=== PATIENT | male | born 1940 | race Caucasian/White ===

== ENCOUNTER 2018-08-11 13:47 | Inpatient (IN) | payer OTHER ==
[~2018-08-11] VITALS: Ht 185.4 cm; Wt 108.2 kg
[~2018-08-11 13:47] MED LIST: ALPR1TAB2 PO; TRAZ5POW
[2018-08-11] MEDS ORDERED: IV NS 0.9% 1,000 ML BAG IV ONE ×2 (14:30→16:00)
[2018-08-11] MEDS ORDERED: ONDANSETRON HCL/PF 4 MG/2 ML VIAL IVP ONE (14:30)
[2018-08-11] MEDS ORDERED: MORPHINE SULFATE INJ 2 MG/ML DISP.SYRIN IV ONE ×2 (14:30→16:30)
[2018-08-11] MEDS ORDERED: ACETAMINOPHEN ES 500 MG TABLET PO ONE (14:30)
[2018-08-11 14:38] LABS: BASOPHILS % (AUTO) 0.1 % (0.0-2.0); HEMATOCRIT 35 % (39-51); HEMOGLOBIN 11.6 g/dL (13.5-17.5); LYMPHOCYTES # (AUTO) 0.7 /CMM (0.8-4.8); MEAN CORPUSCULAR HGB CONC 34 g/dl (31.0-36.0); MEAN CORPUSCULAR VOLUME 93 fL (80-96); MONOCYTES # (AUTO) 1.7 /CMM (0.1-1.30); MONOCYTES % (AUTO) 12.1 % (2.0-12.0); NEUTROPHILS # (AUTO) 11.7 /CMM (1.8-8.9); NEUTROPHILS % (AUTO) 82.8 % (43.0-81.0); PLATELET COUNT (AUTO) 246 /CMM (150-450); RDW COEFFICIENT OF VARIATION 12.7 (11.5-15.0); RED BLOOD CELL COUNT(AUTO) 3.71 MIL/uL (4.5-6.0); WHITE BLOOD COUNT (AUTO) 14.1 K/uL (4.3-11.0)
[2018-08-11 14:48] LABS: CALCIUM, SERUM 8.5 mg/dL (8.5-10.1); CARBON DIOXIDE 26 mmol/L (21-32); CHLORIDE 96 mmol/L (98-107); GLUCOSE 133 mg/dL (74-106); POTASSIUM 3.8 mmol/L (3.5-5.1); SODIUM SERUM 133 mmol/L (136-145); UREA NITROGEN, BLOOD 15 mg/dL (7-18)
[2018-08-11] MEDS ORDERED: ONDANSETRON HCL/PF 4 MG/2 ML VIAL ONE (14:49)
[2018-08-11] MEDS ORDERED: MORPHINE SULFATE INJ 4 MG/ML DISP.SYRIN ONE ×2 (14:50→16:21)
[2018-08-11] MEDS ORDERED: ACETAMINOPHEN ES 500 MG TABLET ONE (14:50)
[2018-08-11 14:53] LABS: ALANINE AMINOTRANSFERASE 18 U/L (12-78); ALBUMIN 3.3 g/dL (3.4-5.0); ALKALINE PHOSPHATASE 69 U/L (46-116); ASPARTATE AMINOTRANSFERASE 17 U/L (15-37); BILIRUBIN,DIRECT 0.4 mg/dL (0.0-0.2); BILIRUBIN,TOTAL 1.2 mg/dL (0.2-1.0); LIPASE 51 U/L (73-393); TOTAL PROTEIN, SERUM 6.9 g/dL (6.4-8.2)
[2018-08-11] MEDS ORDERED: PIPERACILLIN /TAZOBACTAM 3.375 G in IV D5W 50 ML IV ONE (15:30)
[2018-08-11] MEDS ORDERED: TRAZ-182 PO (15:48)
[2018-08-11] MEDS ORDERED: IBUP-1957 PO (15:48)
[2018-08-11] MEDS ORDERED: DOXA4TAB3 PO (15:48)
[2018-08-11] MEDS ORDERED: ATEN25TA PO (15:48)
[2018-08-11] MEDS ORDERED: ALPRAZOLAM 1 MG TABLET PO PRN (16:30)
[2018-08-11] MEDS ORDERED: MAG HYDROX/AL HYDROX/SIMETH 30 ML UDC PO PRN (16:30)
[2018-08-11] MEDS ORDERED: Z GUARD REMEDY 2 OZ OINT TP PRN (16:30)
[2018-08-11] MEDS ORDERED: ACETAMINOPHEN 325 MG TABLET PO PRN (16:30)
[2018-08-11] MEDS ORDERED: MAGNESIUM HYDROXIDE 30 ML UDC PO PRN (16:30)
[2018-08-11] MEDS ORDERED: HYDROCODONE/APAP 5/325MG 1 EACH TABLET PO PRN (16:30)
[2018-08-11] MEDS ORDERED: ONDANSETRON HCL/PF 4 MG/2 ML VIAL IVP PRN (16:30)
[2018-08-11] MEDS ORDERED: BUPIVACAINE 0.5 % PF 150 MG/30 ML VIAL ONE (17:29)
[2018-08-11] MEDS ORDERED: ANESTHESIA TRAY IN PYXIS 1 EA TRAY MC ONE (17:29)
[2018-08-11] MEDS ORDERED: FENTANYL PF 250MCG/5ML AMPUL ONE (17:51)
[2018-08-11] MEDS ORDERED: MIDAZOLAM HCL 2 MG/2ML VIAL ONE (17:51)
[2018-08-11] MEDS ORDERED: METOCLOPRAMIDE HCL 10 MG/2 ML VIAL ONE (17:52)
[2018-08-11] MEDS ORDERED: ROCURONIUM BROMIDE 50 MG/5 ML ONE (17:52)
[2018-08-11] MEDS ORDERED: PIPERACILLIN /TAZOBACTAM 3.375 G in IV D5W 50 ML IV SCH (18:00)
[2018-08-11] MEDS ORDERED: MEPERIDINE HCL/PF 100 MG/ML DISP.SYRIN ONE (20:01)
[2018-08-11] MEDS ORDERED: FENTANYL PF 100MCG/2ML AMPUL ONE (20:17)
[2018-08-11 21:00] VITALS: BP 138/62
[2018-08-11] MEDS: IV NS 0.9% 1,000 ML IV PRN (21:58)
[2018-08-11] MEDS: TRAZODONE 50 MG TABLET PO SCH (22:00)
[2018-08-11] MEDS: MORPHINE SULFATE INJ 2 MG/ML DISP.SYRIN IV PRN (23:05)
[2018-08-12] VITALS: BP 151/70
[2018-08-12] MEDS: PIPERACILLIN /TAZOBACTAM 3.375 G in IV D5W 50 ML IV SCH ×4 (00:33→17:42)
[2018-08-12 04:00] VITALS: BP 177/80
[2018-08-12] MEDS: MORPHINE SULFATE INJ 2 MG/ML DISP.SYRIN IV PRN ×2 (04:58→07:04)
[2018-08-12] MEDS: IV NS 0.9% 1,000 ML IV PRN ×2 (06:08→18:38)
[2018-08-12 06:46] LABS: HEMATOCRIT 36 % (39-51); HEMOGLOBIN 11.8 g/dL (13.5-17.5); LYMPHOCYTES # (AUTO) 0.6 /CMM (0.8-4.8); LYMPHOCYTES % (AUTO) 5.2 % (20.0-44.0); MEAN CORPUSCULAR HGB CONC 33 g/dl (31.0-36.0); MEAN CORPUSCULAR VOLUME 94 fL (80-96); NEUTROPHILS # (AUTO) 9.7 /CMM (1.8-8.9); NEUTROPHILS % (AUTO) 85.8 % (43.0-81.0); PLATELET COUNT (AUTO) 240 /CMM (150-450); RDW COEFFICIENT OF VARIATION 12.5 (11.5-15.0); RED BLOOD CELL COUNT(AUTO) 3.81 MIL/uL (4.5-6.0); WHITE BLOOD COUNT (AUTO) 11.3 K/uL (4.3-11.0)
[2018-08-12 06:54] LABS: CARBON DIOXIDE 25 mmol/L (21-32); CHLORIDE 101 mmol/L (98-107); CREATININE 0.9 mg/dL (0.6-1.3); GLUCOSE 162 mg/dL (74-106); MAGNESIUM 1.5 mg/dL (1.8-2.4); PHOSPHORUS 2.1 mg/dL (2.5-4.9); POTASSIUM 3.6 mmol/L (3.5-5.1); SODIUM SERUM 136 mmol/L (136-145); UREA NITROGEN, BLOOD 11 mg/dL (7-18)
[2018-08-12 07:00] LABS: CHOLESTEROL 109 mg/dL (<200); HDL CHOLESTEROL 21 mg/dL (40-60); LDL 79 mg/dL (0-99); TRIGLYCERIDES 93 mg/dL (30-150)
[2018-08-12 08:00] VITALS: BP 163/80
[2018-08-12] MEDS: DOXAZOSIN MESYLATE (4 MG) 4 MG TABLET PO SCH (09:00)
[2018-08-12] MEDS: ATENOLOL 25 MG TABLET PO SCH (09:00)
[2018-08-12] MEDS: PANTOPRAZOLE 40 MG VIAL IV SCH (09:21)
[2018-08-12] MEDS: HYDROMORPHONE 1 MG/1 ML DISP.SYRIN IV PRN ×4 (10:01→22:29)
[2018-08-12] MEDS: Magnesium 1GM/D5W 100ML PREMIX 100 ML IV SCH ×2 (10:33→11:19)
[2018-08-12] MEDS ORDERED: IOHEXOL-300 100 ML VIAL IV ONE (10:54)
[2018-08-12] MEDS ORDERED: CT SWABBABLE VALVE TRANS SET 1 EA INFUS.SET MC ONE (10:55)
[2018-08-12] MEDS ORDERED: IV NS 0.9% 250 ML IV ONE (10:55)
[2018-08-12] MEDS ORDERED: NEUTRA PHOS 1 POWD.PACKET PO ONE (12:00)
[2018-08-12] MEDS ORDERED: Magnesium 1GM/D5W 100ML PREMIX 100 ML IV SCH (12:00)
[2018-08-12] MEDS ORDERED: HYDROCODONE/APAP 10/325MG 1 EA TABLET PO PRN (13:30)
[2018-08-12 16:00] VITALS: BP 159/74
[2018-08-12 20:00] VITALS: BP 156/65
[2018-08-12 20:25] VITALS: BP 156/65
[2018-08-12] MEDS: TRAZODONE 50 MG TABLET PO SCH (22:00)
[2018-08-13] MEDS: PIPERACILLIN /TAZOBACTAM 3.375 G in IV D5W 50 ML IV SCH ×4 (00:02→17:44)
[2018-08-13] MEDS: HYDROMORPHONE 1 MG/1 ML DISP.SYRIN IV PRN ×6 (02:00→19:51)
[2018-08-13] MEDS: IV NS 0.9% 1,000 ML IV PRN ×2 (05:38→21:08)
[2018-08-13 06:09] LABS: BASOPHILS % (AUTO) 0.1 % (0.0-2.0); EOSINOPHILS % (AUTO) 0.2 % (0.0-6.0); HEMATOCRIT 37 % (39-51); HEMOGLOBIN 12.1 g/dL (13.5-17.5); LYMPHOCYTES # (AUTO) 0.9 /CMM (0.8-4.8); LYMPHOCYTES % (AUTO) 6.6 % (20.0-44.0); MEAN CORPUSCULAR HGB CONC 33 g/dl (31.0-36.0); MEAN CORPUSCULAR VOLUME 95 fL (80-96); MONOCYTES # (AUTO) 1.4 /CMM (0.1-1.30); MONOCYTES % (AUTO) 9.9 % (2.0-12.0); NEUTROPHILS # (AUTO) 11.6 /CMM (1.8-8.9); NEUTROPHILS % (AUTO) 83.2 % (43.0-81.0); PLATELET COUNT (AUTO) 282 /CMM (150-450); RDW COEFFICIENT OF VARIATION 12.9 (11.5-15.0); RED BLOOD CELL COUNT(AUTO) 3.85 MIL/uL (4.5-6.0); WHITE BLOOD COUNT (AUTO) 13.9 K/uL (4.3-11.0)
[2018-08-13 06:17] LABS: ALBUMIN 2.2 g/dL (3.4-5.0); BILIRUBIN,DIRECT 2.3 mg/dL (0.0-0.2); BILIRUBIN,TOTAL 3.2 mg/dL (0.2-1.0); TOTAL PROTEIN, SERUM 5.8 g/dL (6.4-8.2)
[2018-08-13 06:20] LABS: CALCIUM, SERUM 8.1 mg/dL (8.5-10.1); CARBON DIOXIDE 27 mmol/L (21-32); CHLORIDE 103 mmol/L (98-107); CREATININE 1.1 mg/dL (0.6-1.3); GLUCOSE 143 mg/dL (74-106); MAGNESIUM 2.3 mg/dL (1.8-2.4); POTASSIUM 4.2 mmol/L (3.5-5.1); SODIUM SERUM 138 mmol/L (136-145); UREA NITROGEN, BLOOD 14 mg/dL (7-18)
[2018-08-13 08:00] VITALS: BP 145/77
[2018-08-13] MEDS: PANTOPRAZOLE 40 MG VIAL IV SCH (08:04)
[2018-08-13] MEDS: DOXAZOSIN MESYLATE (4 MG) 4 MG TABLET PO SCH (08:34)
[2018-08-13] MEDS: ATENOLOL 25 MG TABLET PO SCH (08:35)
[2018-08-13 16:00] VITALS: BP 129/71
[2018-08-13 16:20] LABS: BILIRUBIN,DIRECT 2.2 mg/dL (0.0-0.2); BILIRUBIN,TOTAL 3.1 mg/dL (0.2-1.0)
[2018-08-13 19:36] VITALS: BP 154/68
[2018-08-13] MEDS: TRAZODONE 50 MG TABLET PO SCH (22:00)
[2018-08-14] MEDS: PIPERACILLIN /TAZOBACTAM 3.375 G in IV D5W 50 ML IV SCH ×4 (00:20→17:19)
[2018-08-14] MEDS: HYDROMORPHONE 1 MG/1 ML DISP.SYRIN IV PRN ×6 (00:38→17:19)
[2018-08-14 06:47] LABS: BASOPHILS % (AUTO) 0.1 % (0.0-2.0); EOSINOPHILS % (AUTO) 1.8 % (0.0-6.0); HEMATOCRIT 35 % (39-51); HEMOGLOBIN 11.8 g/dL (13.5-17.5); LYMPHOCYTES % (AUTO) 8.5 % (20.0-44.0); MEAN CORPUSCULAR HGB CONC 33 g/dl (31.0-36.0); MEAN CORPUSCULAR VOLUME 95 fL (80-96); MONOCYTES % (AUTO) 8.2 % (2.0-12.0); NEUTROPHILS # (AUTO) 9.6 /CMM (1.8-8.9); NEUTROPHILS % (AUTO) 81.4 % (43.0-81.0); PLATELET COUNT (AUTO) 328 /CMM (150-450); RDW COEFFICIENT OF VARIATION 12.9 (11.5-15.0); RED BLOOD CELL COUNT(AUTO) 3.73 MIL/uL (4.5-6.0); WHITE BLOOD COUNT (AUTO) 11.8 K/uL (4.3-11.0)
[2018-08-14 07:09] LABS: ALANINE AMINOTRANSFERASE 16 U/L (12-78); ALBUMIN 2.1 g/dL (3.4-5.0); ALKALINE PHOSPHATASE 53 U/L (46-116); ASPARTATE AMINOTRANSFERASE 16 U/L (15-37); BILIRUBIN,DIRECT 1.3 mg/dL (0.0-0.2); BILIRUBIN,TOTAL 1.9 mg/dL (0.2-1.0); CARBON DIOXIDE 28 mmol/L (21-32); CHLORIDE 103 mmol/L (98-107); GLUCOSE 119 mg/dL (74-106); POTASSIUM 3.7 mmol/L (3.5-5.1); SODIUM SERUM 138 mmol/L (136-145); TOTAL PROTEIN, SERUM 5.8 g/dL (6.4-8.2); UREA NITROGEN, BLOOD 19 mg/dL (7-18)
[2018-08-14 08:00] VITALS: BP 151/73
[2018-08-14] MEDS: PANTOPRAZOLE 40 MG VIAL IV SCH (08:49)
[2018-08-14] MEDS: DOXAZOSIN MESYLATE (4 MG) 4 MG TABLET PO SCH (08:55)
[2018-08-14] MEDS: ATENOLOL 25 MG TABLET PO SCH (08:55)
[2018-08-14] MEDS: IV NS 0.9% 1,000 ML IV PRN (12:01)
[2018-08-14] MEDS ORDERED: PIPE3.379 IV (13:36)
[2018-08-14] MEDS ORDERED: Hydrocodone/Apap 10/325MG PO (13:36)
[2018-08-14] MEDS ORDERED: PANT40VI IV (13:36)
[2018-08-14] MEDS ORDERED: HYDR1DIS2 IV (13:36)
[2018-08-14 16:00] VITALS: BP 177/79
== END 2018-08-14 18:30 | disposition short-term general hospital (02) | DRG 853 ==
LOC: ER 13:49 → MED 16:33 → TELE 08-12 03:30 → MED 08-12 09:46
PROVIDERS: ADMIT Nurse Practitioner Acute Care; ATTEND Nurse Practitioner Acute Care
PROC: 0WQF4ZZ Repair Abdominal Wall, Percutaneous Endoscopic Approach (ICD-10-PCS; 2018-08-11)
PROC: 0DQH4ZZ Repair Cecum, Percutaneous Endoscopic Approach (ICD-10-PCS; 2018-08-11)
PROC: 0D9J30Z Drainage of Appendix with Drainage Device, Percutaneous Approach (ICD-10-PCS; 2018-08-11)
PROC: 0DTJ4ZZ Resection of Appendix, Percutaneous Endoscopic Approach (ICD-10-PCS; principal; 2018-08-11 17:30)
DX: A41.9 Sepsis, unspecified organism (principal); K35.32 Acute appendicitis with perforation, localized peritonitis, and gangrene, without abscess; E43 Unspecified severe protein-calorie malnutrition; E87.1 Hypo-osmolality and hyponatremia; K86.2 Cyst of pancreas; K56.7 Ileus, unspecified; F41.9 Anxiety disorder, unspecified; Z68.31 Body mass index [BMI] 31.0-31.9, adult; E80.6 Other disorders of bilirubin metabolism; D64.9 Anemia, unspecified; I10 Essential (primary) hypertension; N40.0 Benign prostatic hyperplasia without lower urinary tract symptoms; M81.0 Age-related osteoporosis without current pathological fracture; K43.9 Ventral hernia without obstruction or gangrene; K38.1 Appendicular concretions; G89.29 Other chronic pain; F17.210 Nicotine dependence, cigarettes, uncomplicated; K76.0 Fatty (change of) liver, not elsewhere classified; K86.9 Disease of pancreas, unspecified; M19.90 Unspecified osteoarthritis, unspecified site; N28.1 Cyst of kidney, acquired; N20.0 Calculus of kidney; Z80.0 Family history of malignant neoplasm of digestive organs; E86.1 Hypovolemia; Z87.442 Personal history of urinary calculi
CPT/HCPCS: 36415; 71045-TC; 74018; 74178; 74181-TC; 76705-TC; 80048-TC; 80061-TC; 80076-TC; 82247-TC; 82248-TC; 83605-TC; 83690-TC; 83735-TC; 84100-TC; 84443-TC; 85025-TC; 86301; 87040-TC; 87070-TC; 87081-TC; 88304-TC; A4606; C9113; J1170; J2175; J2250; J2270; J2405; J2543; J2704; J2710; J2765; J3010; J3475; J3490; J7030; J7050; J7060; Q9967; Z7610

== ENCOUNTER 2022-11-18 08:08 | Emergency (ER) | payer OTHER ==
[~2022-11-18] VITALS: Ht 185.4 cm; Wt 104.3 kg
[~2022-11-18 08:08] MED LIST changes: +ATEN25TA PO; +DOXA4TAB3 PO; +HYDR1DIS2 IV; +Hydrocodone/Apap 10/325MG PO; +IBUP-1957 PO; +PANT40VI IV; +PIPE3.379 IV; +TRAZ-182 PO; -TRAZ5POW
--- NOTE | 2022-11-18 08:15 | NUR ---
BIB RA 839 IN A SITTING POSITION,C/O ANXIETY AND SHAKING,HEAVY ALCOHOL DRINKER AND LAST DRINK WAS AT 0300
--- NOTE | 2022-11-18 08:17 | NUR ---
ESTABLISHED IV LINE LEFT AC 20 G
[2022-11-18 08:36] LABS: BASOPHILS % (AUTO) 0.2 % (0.0-2.0); EOSINOPHILS % (AUTO) 0.6 % (0.0-6.0); HEMATOCRIT 41 % (39-51); HEMOGLOBIN 14.1 g/dL (13.5-17.5); LYMPHOCYTES # (AUTO) 0.7 K/uL (0.8-4.8); MEAN CORPUSCULAR HGB CONC 34 g/dl (31.0-36.0); MEAN CORPUSCULAR VOLUME 98 fL (80-96); MONOCYTES # (AUTO) 0.7 K/uL (0.1-1.30); MONOCYTES % (AUTO) 10.1 % (2.0-12.0); NEUTROPHILS # (AUTO) 5.1 K/uL (1.8-8.9); NEUTROPHILS % (AUTO) 78.1 % (43.0-81.0); PLATELET COUNT (AUTO) 207 K/uL (150-450); RED BLOOD CELL COUNT(AUTO) 4.23 MIL/uL (4.5-6.0); WHITE BLOOD COUNT (AUTO) 6.5 K/uL (4.3-11.0)
[2022-11-18] MEDS ORDERED: LORAZEPAM INJ 2 MG/ML VIAL ONE (08:52)
[2022-11-18] MEDS ORDERED: LORAZEPAM INJ 2 MG/ML VIAL IV ONE (09:00)
[2022-11-18 09:16] LABS: CALCIUM, SERUM 9.5 mg/dL (8.5-10.1); CARBON DIOXIDE 22 mmol/L (21-32); CHLORIDE 100 mmol/L (98-107); CREATININE 1.3 mg/dL (0.6-1.3); GLUCOSE 178 mg/dL (74-106); POTASSIUM 3.2 mmol/L (3.5-5.1); SODIUM SERUM 137 mmol/L (136-145); UREA NITROGEN, BLOOD 10 mg/dL (7-18)
[2022-11-18] MEDS ORDERED: POTASSIUM CHLORIDE 20 MEQ TAB.PRT.SR PO ONE ×2 (09:30→09:36)
[2022-11-18] MEDS ORDERED: Magnesium 1GM/D5W 100ML PREMIX 100 ML IV SCH (09:30)
[2022-11-18 09:31] LABS: ALANINE AMINOTRANSFERASE 68 U/L (12-78); ALBUMIN 4.5 g/dL (3.4-5.0); ALCOHOL, BLOOD < 3 mg/dL (0-0); ALKALINE PHOSPHATASE 45 U/L (46-116); ASPARTATE AMINOTRANSFERASE 49 U/L (15-37); BILIRUBIN,DIRECT 0.3 mg/dL (0.0-0.2); BILIRUBIN,TOTAL 0.9 mg/dL (0.2-1.0); TOTAL PROTEIN, SERUM 7.7 g/dL (6.4-8.2)
[2022-11-18] MEDS ORDERED: Magnesium 1GM/D5W 100ML PREMIX 100 ML IV ONE (09:36)
[2022-11-18] MEDS ORDERED: LORAZEPAM 1 MG TABLET PO ONE ×2 (10:30→12:00)
[2022-11-18] MEDS ORDERED: LORAZEPAM 1 MG TABLET ONE ×2 (10:45→12:26)
--- NOTE | 2022-11-18 11:30 | NUR ---
COVID SWAB TAKEN
--- NOTE | 2022-11-18 11:30 | NUR ---
CALLED BECKY RICO
[2022-11-18] MEDS ORDERED: IV NS 0.9% 1,000 ML BAG IV ONE (12:00)
--- NOTE | 2022-11-18 12:25 | NUR ---
SS Consult: SS Consult requested for alcohol rehab referrals. The pt. is a 82 -year-old male pt. who came into ED due to alcohol withdrawals per EMR. Upon SS consult, the pt. is Alert & Oriented x 4 and makes good eye contact. The pt. appears well-groomed, flushed appearance and with slight tremors. Pt. has depressed mood & affect. Pt.s speech is loud & clear and thought process is WNL. Pt. is hard of hearing. Pt. remained calm & cooperative throughout interview. Pt. denies SI/HI and states denies hallucinations. SW explored pt.s living situation. Per pt. he resides with his son, Javon Villalobos in his home [[id number] [facility] [address] SW explored pt.s drug & ETOH use. Pt. states he has been drinking Luci or Vodka daily for the past week on a binge. SW offered pt. referral to rehab facility and pt. accepted resources. SW provided psychoeducation on alcohol dependence. Per pt. denied any mental health diagnosis. The pt. stated he is usually ambulatory and independent with his ADLs. Pt. states his support system also consists of his daughter, Antonio [phone]. Plan: BRAD provided pt. with the following addiction resources and pt. accepted them. BRAD discussed with Afshin AVALOS who stated that pt. has [facility], but they will work on admitting pt. here or transfer to [facility] to manage withdrawals. Pt. states he can return home [[address] [facility] [address]] when he is medically cleared. Noted ADDICTION RESOURCES For Drugs and Alcohol [facility] sober living Referrals For Rehabilitation once sober Address:[address] [place] [address] [facility] [address] [place] [address] Detox/residential [facility] Substance Abuse Helpline ([facility]) Outpatient, residential treatment, recovery support for youth/adults [facility] www.actionfamilycounsInvertirOnline.com.Goshi [facility] Teen programs for drug/alcohol education and support Richard Victoria [place]. Program for adults, sliding scale provides support and education [facility] www.[employer].org [place]; Detox/residential treatment programs; transition to sober living [facility] www.cri-help.org [place]; Outpatient and residential treatment programs; transition to sober living [facility] TEL: [phone] I-[facility] [place] [facility] Moi Michele; Outpatient education and supportive programs for teens and adults [facility] www.[facility].org [place]; Residential treatment and work program for females only [place] www.Blue[employer] Softwareje[facility].BOLETUS NETWORK [place]: Outpatient/residential treatment program for teens and young adults [facility] www.[facility].org [place] Detox, inpatient, outpatient for adults and youth [facility], [facility]. [place]; Outpatient programs and referrals to community residential programs. Alcoholics Anonymous -SFV information and meeting and scheduleswww.aa-intergroup.org Wn-Xnnr-Ugvjoqj https://al-anon.org/ [place] support groups for family of alcoholics. Marijuana Anonymous www.madistrict6.org -SFV listing of meetings Narcotics Anonymous www.na.org SOBER LIVING RESOURCES [facility] www.soberhousing.net A non-profit agency that provides resources to recovery and sober living homes throughout [place] Human Resource SSD Sober Living Homes: A Work in ProgressAldair [facility] ValleyDonUS [employer]CH[employer] [facility], [facility] SobriJohn C. Stennis Memorial HospitalMoi Womens Sober Living Homes: [facility] x [phone] My New BeginningANDRE Odyssey HouseShriners Hospital Shorehamkris Victoria [place] Coed Sober Living Homes: [facility] Counseling--Outpatient [facility] [address] [facility] [place] [address] [place] [address] (Specializes in in-depth psychotherapy for emotional distress: anxiety, depression, interpersonal conflicts, life transitions, childhood abuse) [facility] [address] [place] [address] (Assist with solving problem marital difficulties, separation & divorce, aging parents, & grief, chronic & terminal illness) [facility] [address] [place] [address] (Deal with loss & grief, anxiety, marital difficulties) Homebound/Mental Health Services [address] [place], [place] [id number] (Provide in-home mental services to people who are incapable of leaving their homes) [facility] of the Elderly Senior Service/Resource Center [address] [place] [address] [facility] [address] [place] [address] Mental Health Services LeighannJ.W. Ruby Memorial HospitalRosetta Spurger [address] [place] [address] Services: Outpatient therapy for children, teens, young adults, adults, older adults, and families; Psychiatric services, medication support Psychiatric Outpatient Services [facility] Partial Hospitalization and Intensive Outpatient Program (Managed Care and [facility] Only)[address] [facility] [phone] [facility] Partial Hospitalization and Outpatient [id number] Natanael [facility]. [address] [place], [place] [phone] [facility] [address] [place], [place] [phone] [facility] Moi Michele Partial Hospitalization and Outpatient [id number] [place] [phone] Crisis and Hotline Telephone Numbers 24-Hour service unless stated [place] Crisis Hotlines: [facility] Mental Health/Crisis Line........175.736.6483 Suicide Prevention Center (24 Hours).......743.364.4693 Suicide Prevention Crisis Center.......[phone] (24 Hours) Assaults Against Women Hotline.........910.380.3633 (24 Hours -- [facility]) Women and Children Crisis Assisted...........[phone] (24 Hours) Child Abuse Hotline............203.324.4085 [facility] Rape Treatment Center (24 Hours)..........[phone] Alcoholics Anonymous (24 Hours)..........419.157.1022 Cocaine Anonymous (24 Hours)............[phone] Narcotics Anonymous (24 Hours)..........281.170.2264 Zuleyma Gomes [facility] [address], [place] [address]
--- NOTE | 2022-11-18 12:28 | NUR ---
TRANSFER INFO: [facility] ACCEPTING: DR KAMERON PAZ # FOR REPORT: [phone] [facility] TRANSPORT: [facility] @ 1415
--- NOTE | 2022-11-18 12:34 | NUR ---
CALLED FOR REPORT, NURSE STATES "IT'S GOING TO TAKE TIME" WILL CALL BACK IN 15-20MIN
--- NOTE | 2022-11-18 12:58 | NUR ---
CALLED FOR REPORT, NURSE STATES "IT'S GOING TO TAKE TIME" WILL CALL BACK IN 15-20MIN
[2022-11-18 13:01] VITALS: BP 138/70
--- NOTE | 2022-11-18 13:10 | NUR ---
GAVE REPORT TO TRANSPORT PERSON .
--- NOTE | 2022-11-18 13:15 | NUR ---
REPORT GIVEN TO JEFF SANCHEZ OF [facility]
[2022-11-18] MEDS ORDERED: ACETAMINOPHEN 325 MG TABLET ONE (13:18)
--- NOTE | 2022-11-18 13:29 | NUR ---
PATIENT WAS PICKED UP BY [facility] PER [facility] [employer]
[2022-11-18] MEDS ORDERED: ACETAMINOPHEN 325 MG TABLET PO ONE (13:30)
== END 2022-11-18 13:34 | disposition short-term general hospital (02) ==
LOC: ER 08:08
DX: F10.239 Alcohol dependence with withdrawal, unspecified (principal); E83.42 Hypomagnesemia; F41.9 Anxiety disorder, unspecified; E87.6 Hypokalemia; Z20.822 Contact with and (suspected) exposure to COVID-19; R73.03 Prediabetes; I10 Essential (primary) hypertension; Z87.442 Personal history of urinary calculi; Z79.899 Other long term (current) drug therapy
CPT/HCPCS: 99291; 96365; 96361; 96375; 93005; 71045; 70450; 85025; 80048; 80076; 83735; 36415; 85730; 87426; 80320; J2060; J7040; J3475; C9803; G0480

== ENCOUNTER 2024-02-02 11:52 | Emergency (ER) | payer OTHER ==
[~2024-02-02] VITALS: Ht 185.4 cm; Wt 104.3 kg
[2024-02-02 12:00] VITALS: TEMP 98.6
[2024-02-02 12:43] LABS: CALCIUM, SERUM 9.2 mg/dL (8.5-10.1); CARBON DIOXIDE 28 mmol/L (21-32); CHLORIDE 96 mmol/L (98-107); GLUCOSE 148 mg/dL (74-106); POTASSIUM 3.5 mmol/L (3.5-5.1); SODIUM SERUM 134 mmol/L (136-145); UREA NITROGEN, BLOOD 7 mg/dL (7-18)
[2024-02-02] MEDS: IV NS 0.9% 1,000 ML BAG IV ONE (12:52)
[2024-02-02 12:53] LABS: INR 0.98 (0.91-1.10); PARTIAL THROMBOPLASTIN TIME 26.9 SEC (24.3-34.3); PROTHROMBIN TIME 10.4 SECS (9.2-11.1)
[2024-02-02] MEDS ORDERED: LORAZEPAM INJ 2 MG/ML VIAL ONE (12:54)
[2024-02-02 12:55] LABS: ALANINE AMINOTRANSFERASE 77 U/L (12-78); ALBUMIN 3.6 g/dL (3.4-5.0); ALKALINE PHOSPHATASE 63 U/L (46-116); ASPARTATE AMINOTRANSFERASE 119 U/L (15-37); BILIRUBIN,DIRECT 0.5 mg/dL (0.0-0.2); BILIRUBIN,TOTAL 1.2 mg/dL (0.2-1.0); NT-PRO BNP 351 pg/mL (0-125); TOTAL PROTEIN, SERUM 7.1 g/dL (6.4-8.2)
[2024-02-02 12:58] LABS: BASOPHILS % (AUTO) 0.2 % (0.0-2.0); EOSINOPHILS % (AUTO) 0.5 % (0.0-6.0); HEMATOCRIT 38 % (39-51); HEMOGLOBIN 13.1 g/dL (13.5-17.5); LYMPHOCYTES # (AUTO) 0.8 K/uL (0.8-4.8); LYMPHOCYTES % (AUTO) 12.4 % (20.0-44.0); MEAN CORPUSCULAR HEMOGLOBIN 34 PG (26.0-33.0); MEAN CORPUSCULAR HGB CONC 35 g/dl (31.0-36.0); MEAN CORPUSCULAR VOLUME 98 fL (80-96); MONOCYTES # (AUTO) 0.7 K/uL (0.1-1.30); MONOCYTES % (AUTO) 10.8 % (2.0-12.0); NEUTROPHILS # (AUTO) 5.2 K/uL (1.8-8.9); NEUTROPHILS % (AUTO) 76.1 % (43.0-81.0); PLATELET COUNT (AUTO) 235 K/uL (150-450); RED BLOOD CELL COUNT(AUTO) 3.81 MIL/uL (4.5-6.0); RED CELL DISTRIBUTION WIDTH 13.6 % (11.5-15.0); WHITE BLOOD COUNT (AUTO) 6.8 K/uL (4.3-11.0)
[2024-02-02] MEDS: LORAZEPAM INJ 2 MG/ML VIAL IV ONE (13:02)
[2024-02-02 13:37] LABS: APPEARANCE,URINE Clear (CLEAR); BILIRUBIN,URINE Negative (NEGATIVE); BLOOD, URINE Small Ery/uL (NEGATIVE); COLOR,URINE LIGHT YELLOW (YELLOW); KETONES,URINE 15 mg/dL (NEGATIVE); LEUKOCYTE ESTERASE ,URINE Negative (NEGATIVE); NITRITE, URINE Negative (NEGATIVE); PROTEIN,URINE Negative (NEGATIVE); UGLUCOSE Negative (NEGATIVE); UROBILINOGEN,URINE 0.2 EU/dL (0.2)
[2024-02-02 13:40] LABS: LIPASE 32 U/L (16-77)
[2024-02-02 13:54] LABS: ADD URINE CULTURE NO; AMPHETAMINE, URINE NEGATIVE (NEGATIVE); BACTERIA,URINE Rare /HPF (None Seen); BARBITURATE, URINE NEGATIVE (NEGATIVE); BENZODIAZEPINE, URINE NEGATIVE (NEGATIVE); CANNABINOID, URINE NEGATIVE (NEGATIVE); COCCAINE, URINE NEGATIVE (NEGATIVE); OPIATE, URINE NEGATIVE (NEGATIVE); PHENCYCLIDINE SCREEN,URINE NEGATIVE (NEGATIVE); RBC,URINE 21-50 /HPF (0-2); SQUAMOUS EPITHELIAL CELL,UR Rare /HPF (None Seen); WBC,URINE 0-2 /HPF (0-3)
[2024-02-02 15:45] VITALS: BP 156/76; O2SAT 97
== END 2024-02-02 15:57 | disposition short-term general hospital (02) ==
LOC: ER 11:58
DX: F10.239 Alcohol dependence with withdrawal, unspecified (principal); R25.1 Tremor, unspecified; K70.9 Alcoholic liver disease, unspecified; R60.0 Localized edema; R00.0 Tachycardia, unspecified; R73.9 Hyperglycemia, unspecified; D64.9 Anemia, unspecified; I10 Essential (primary) hypertension; Z79.899 Other long term (current) drug therapy
CPT/HCPCS: 99285; 96374; 96361; 93005 ×2; 71045; 85025; 80048; 83690; 80076; 81001; 36415; 84484; 85730; 83880; 80320; 80307; J2060; J7030; G0480

== ENCOUNTER 2024-10-19 08:47 | Inpatient (IN) | payer BC, OTHER ==
[2024-10-19] VITALS (7 sets, daily range): BP systolic 151–177; BP diastolic 75–133; TEMP 98.1–98.3; O2SAT 96–100
[~2024-10-19] VITALS: Ht 182.9 cm; Wt 100.3 kg
[2024-10-19] MEDS ORDERED: PANTOPRAZOLE 80 MG in IV NS 0.9% 500 ML IV STA (09:02)
[2024-10-19] MEDS ORDERED: LORAZEPAM INJ 2 MG/ML VIAL ONE ×2 (09:09→12:56)
[2024-10-19] MEDS: PANTOPRAZOLE 80 MG in IV NS 0.9% 100 ML IV ONE (09:10)
[2024-10-19] MEDS: LORAZEPAM INJ 2 MG/ML VIAL IVP STA (09:13)
[2024-10-19] MEDS: IV NS 0.9% 1,000 ML BAG IV ONE (09:13)
[2024-10-19 09:23] LABS: BASOPHILS % (AUTO) 0.1 % (0.0-2.0); HEMATOCRIT 40 % (39-51); HEMOGLOBIN 13.6 g/dL (13.5-17.5); LYMPHOCYTES # (AUTO) 0.4 K/uL (0.8-4.8); LYMPHOCYTES % (AUTO) 3.6 % (20.0-44.0); MEAN CORPUSCULAR HEMOGLOBIN 35 PG (26.0-33.0); MEAN CORPUSCULAR HGB CONC 34 g/dl (31.0-36.0); MEAN CORPUSCULAR VOLUME 100 fL (80-96); MONOCYTES # (AUTO) 0.8 K/uL (0.1-1.30); MONOCYTES % (AUTO) 7.2 % (2.0-12.0); NEUTROPHILS # (AUTO) 9.8 K/uL (1.8-8.9); NEUTROPHILS % (AUTO) 89.1 % (43.0-81.0); PLATELET COUNT (AUTO) 136 K/uL (150-450); RED BLOOD CELL COUNT(AUTO) 3.94 MIL/uL (4.5-6.0); RED CELL DISTRIBUTION WIDTH 15.9 % (11.5-15.0)
[2024-10-19] MEDS ORDERED: PANTOPRAZOLE 80 MG in IV NS 0.9% 500 ML IV PRN (09:30)
[2024-10-19 09:43] LABS: ALANINE AMINOTRANSFERASE 38 U/L (12-78); ALBUMIN 3.7 g/dL (3.4-5.0); ALCOHOL, BLOOD 75 mg/dL (0-10); ALKALINE PHOSPHATASE 61 U/L (46-116); ASPARTATE AMINOTRANSFERASE 61 U/L (15-37); BILIRUBIN,DIRECT 0.4 mg/dL (0.0-0.2); BILIRUBIN,TOTAL 0.9 mg/dL (0.2-1.0); CALCIUM, SERUM 9.7 mg/dL (8.5-10.1); CARBON DIOXIDE 14 mmol/L (21-32); CHLORIDE 95 mmol/L (98-107); CREATININE 1.5 mg/dL (0.6-1.3); GLUCOSE 190 mg/dL (74-106); POTASSIUM 3.8 mmol/L (3.5-5.1); SODIUM SERUM 138 mmol/L (136-145); TOTAL PROTEIN, SERUM 7.3 g/dL (6.4-8.2); UREA NITROGEN, BLOOD 14 mg/dL (7-18)
[2024-10-19] MEDS: PANTOPRAZOLE 80 MG in IV NS 0.9% 500 ML IV PRN (09:43)
[2024-10-19 09:49] LABS: ACETAMINOPHEN <10 ug/ml (10-30); SALICYLATE 1.6 mg/dL (2.8-20.0)
[2024-10-19 10:02] LABS: INR 1.04 (0.91-1.10); PARTIAL THROMBOPLASTIN TIME 27.6 SEC (24.3-34.3)
[2024-10-19] MEDS ORDERED: IOHEXOL-300 100 ML VIAL IV ONE (10:06)
[2024-10-19] MEDS ORDERED: CT SWABBABLE VALVE TRANS SET 1 EA INFUS.SET MC ONE (10:06)
[2024-10-19] MEDS ORDERED: IV NS 0.9% 250 ML IV ONE (10:06)
[2024-10-19] MEDS ORDERED: PHENOBARBITAL SODIUM IV ONE (11:00)
[2024-10-19] MEDS ORDERED: NS 0.9% IV ONE (11:00)
[2024-10-19] MEDS ORDERED: TRAZ-257 PO (11:05)
[2024-10-19] MEDS ORDERED: TAMS-12 PO (11:05)
[2024-10-19] MEDS ORDERED: FURO-145 PO (11:05)
[2024-10-19] MEDS ORDERED: BUPR1FIL SL (11:05)
[2024-10-19] MEDS ORDERED: AMLO-212 PO (11:05)
[2024-10-19] MEDS ORDERED: PANT40TA2 PO (11:05)
[2024-10-19] MEDS ORDERED: HYDR-4077 PO (11:05)
[2024-10-19] MEDS: NS 0.9% IV ONE (12:15)
[2024-10-19] MEDS: PHENOBARBITAL SODIUM IV ONE (12:15)
[2024-10-19] MEDS: LORAZEPAM 4 MG/ML VIAL IV ONE (13:00)
[2024-10-19] MEDS ORDERED: ONDANSETRON HCL/PF 4 MG/2 ML VIAL IVP PRN (13:00)
[2024-10-19] MEDS ORDERED: MAG HYDROX/AL HYDROX/SIMETH 30 ML UDC PO PRN (13:00)
[2024-10-19] MEDS ORDERED: Z GUARD REMEDY 4 OZ OINT TP PRN (13:00)
[2024-10-19] MEDS: Thiamine 100 MG in IV D5W 50 ML IV SCH (14:15)
[2024-10-19] MEDS ORDERED: hydrALAZINE HCL IV 20 MG VIAL ONE (15:54)
[2024-10-19] MEDS: hydrALAZINE HCL IV 20 MG VIAL IV PRN ×2 (16:04→23:31)
[2024-10-19] MEDS: IV NS 0.9% 1,000 ML IV PRN (16:05)
[2024-10-19 16:11] LABS: AMPHETAMINE, URINE NEGATIVE (NEGATIVE); BENZODIAZEPINE, URINE NEGATIVE (NEGATIVE); CANNABINOID, URINE NEGATIVE (NEGATIVE); COCCAINE, URINE NEGATIVE (NEGATIVE); OPIATE, URINE NEGATIVE (NEGATIVE); PHENCYCLIDINE SCREEN,URINE NEGATIVE (NEGATIVE)
[2024-10-19 16:12] LABS: BARBITURATE, URINE POSITIVE (NEGATIVE)
[2024-10-19] MEDS: hydrALAZINE HCL 50 MG TABLET PO SCH (17:00)
[2024-10-19] MEDS: PANTOPRAZOLE 40 MG VIAL IV SCH (20:45)
[2024-10-20] VITALS (23 sets, daily range): BP systolic 120–185; BP diastolic 65–112; TEMP 98–98.6; O2SAT 96–100
[2024-10-20] MEDS: LORAZEPAM INJ 2 MG/ML VIAL IV PRN (01:10)
[2024-10-20] MEDS: ACETAMINOPHEN 325 MG TABLET PO PRN (04:28)
[2024-10-20 04:57] LABS: BASOPHILS # (AUTO) 0.1 K/uL (0.0-0.2); BASOPHILS % (AUTO) 0.7 % (0.0-2.0); HEMATOCRIT 34 % (39-51); LYMPHOCYTES # (AUTO) 0.7 K/uL (0.8-4.8); LYMPHOCYTES % (AUTO) 7.6 % (20.0-44.0); MEAN CORPUSCULAR HEMOGLOBIN 35 PG (26.0-33.0); MEAN CORPUSCULAR HGB CONC 35 g/dl (31.0-36.0); MEAN CORPUSCULAR VOLUME 97 fL (80-96); MONOCYTES % (AUTO) 11.7 % (2.0-12.0); NEUTROPHILS # (AUTO) 7.1 K/uL (1.8-8.9); PLATELET COUNT (AUTO) 116 K/uL (150-450); RED BLOOD CELL COUNT(AUTO) 3.48 MIL/uL (4.5-6.0); RED CELL DISTRIBUTION WIDTH 15.7 % (11.5-15.0); WHITE BLOOD COUNT (AUTO) 8.9 K/uL (4.3-11.0)
[2024-10-20 05:08] LABS: CALCIUM, SERUM 9.5 mg/dL (8.5-10.1); CARBON DIOXIDE 22 mmol/L (21-32); CHLORIDE 103 mmol/L (98-107); GLUCOSE 166 mg/dL (74-106); MAGNESIUM 1.3 mg/dL (1.8-2.4); PHOSPHORUS 1.6 mg/dL (2.5-4.9); POTASSIUM 3.8 mmol/L (3.5-5.1); SODIUM SERUM 138 mmol/L (136-145); UREA NITROGEN, BLOOD 8 mg/dL (7-18)
[2024-10-20 05:27] LABS: CHOLESTEROL 147 mg/dL (<200); HDL CHOLESTEROL 63 mg/dL (40-60); LDL 71 mg/dL (0-99); TRIGLYCERIDES 198 mg/dL (30-150)
[2024-10-20] MEDS: DILTIAZEM HCL 25 MG IV ONE (05:29)
[2024-10-20] MEDS: DILTIAZEM HCL 50 MG IV IV ONE ×2 (05:32→06:21)
[2024-10-20] MEDS: DOXAZOSIN MESYLATE (4 MG) 4 MG TABLET PO SCH (08:05)
[2024-10-20] MEDS: AMLODIPINE BESYLATE 5 MG TABLET PO SCH (08:05)
[2024-10-20] MEDS: TAMSULOSIN 0.4 MG CAP.SR.24H PO SCH (08:06)
[2024-10-20] MEDS: ATENOLOL 25 MG TABLET PO SCH (08:06)
[2024-10-20] MEDS ORDERED: BUPRENORPHINE HCL 2 MG TAB.SUBL SL SCH ×2 (09:00→17:11)
[2024-10-20] MEDS: BUPRENORPHINE HCL 2 MG TAB.SUBL SL SCH (09:20)
[2024-10-20] MEDS ORDERED: MAGNESIUM OXIDE 400 MG TABLET PO SCH (10:00)
[2024-10-20] MEDS: Magnesium 1GM/D5W 100ML PREMIX 100 ML IV SCH (13:24)
[2024-10-20] MEDS: Sodium Phosphate 15 MMOL in IV NS 0.9% 245 ML IV SCH (13:42)
[2024-10-20] MEDS: PANTOPRAZOLE 40 MG TABLET.DR PO SCH (20:31)
[2024-10-21] VITALS (10 sets, daily range): BP systolic 139–173; BP diastolic 65–87; TEMP 97.9–99.2; O2SAT 96–98
[2024-10-21] MEDS: ACETAMINOPHEN 325 MG TABLET PO PRN (01:26)
[2024-10-21 07:49] LABS: BASOPHILS % (AUTO) 0.4 % (0.0-2.0); EOSINOPHILS % (AUTO) 0.6 % (0.0-6.0); HEMATOCRIT 32 % (39-51); HEMOGLOBIN 11.5 g/dL (13.5-17.5); LYMPHOCYTES # (AUTO) 0.9 K/uL (0.8-4.8); MEAN CORPUSCULAR HEMOGLOBIN 35 PG (26.0-33.0); MEAN CORPUSCULAR HGB CONC 35 g/dl (31.0-36.0); MEAN CORPUSCULAR VOLUME 98 fL (80-96); MONOCYTES # (AUTO) 0.7 K/uL (0.1-1.30); MONOCYTES % (AUTO) 11.2 % (2.0-12.0); NEUTROPHILS # (AUTO) 4.6 K/uL (1.8-8.9); NEUTROPHILS % (AUTO) 72.8 % (43.0-81.0); PLATELET COUNT (AUTO) 112 K/uL (150-450); RED CELL DISTRIBUTION WIDTH 15.9 % (11.5-15.0); WHITE BLOOD COUNT (AUTO) 6.3 K/uL (4.3-11.0)
[2024-10-21 08:12] LABS: CALCIUM, SERUM 8.6 mg/dL (8.5-10.1); CREATININE 0.7 mg/dL (0.6-1.3); POTASSIUM 3.1 mmol/L (3.5-5.1)
[2024-10-21] MEDS: POTASSIUM CHLORIDE 20 MEQ TAB.PRT.SR PO SCH (10:51)
[2024-10-21] MEDS: THIAMINE HCL 100 MG TABLET PO SCH (12:07)
[2024-10-21 12:35] LABS: LYMPHOCYTES % (MANUAL) 16 % (16-48); MONOCYTES % (MANUAL) 3 % (0-11.0); MYELOCYTES % 3 % (0-0); NEUTROPHILS % (MANUAL) 78 (42-76); PLATELET ESTIMATE DECREASED
[2024-10-21 12:36] LABS: ANISOCYTOSIS 1+
[2024-10-21] MEDS: MAGNESIUM OXIDE 400 MG TABLET PO ONE (13:18)
[2024-10-21] MEDS: MENTHOL/CETYLPYRD (CEPACOL) 1 LOZ LOZENGE PO PRN (13:22)
[2024-10-21] MEDS: MAGNESIUM HYDROXIDE 30 ML UDC PO PRN (18:55)
[2024-10-21] MEDS: MUPIROCIN OINT 2% 22 GM TUBE NS SCH (20:43)
[2024-10-22] VITALS: BP 160/76; TEMP 98.4; O2SAT 96
[2024-10-22 04:00] VITALS: BP 167/84; TEMP 98.2; O2SAT 96
[2024-10-22 07:03] LABS: BASOPHILS % (AUTO) 0.5 % (0.0-2.0); EOSINOPHILS # (AUTO) 0.1 K/uL (0.0-0.7); EOSINOPHILS % (AUTO) 0.9 % (0.0-6.0); HEMATOCRIT 33 % (39-51); HEMOGLOBIN 11.5 g/dL (13.5-17.5); LYMPHOCYTES # (AUTO) 0.9 K/uL (0.8-4.8); LYMPHOCYTES % (AUTO) 10.4 % (20.0-44.0); MEAN CORPUSCULAR HEMOGLOBIN 34 PG (26.0-33.0); MEAN CORPUSCULAR HGB CONC 35 g/dl (31.0-36.0); MEAN CORPUSCULAR VOLUME 98 fL (80-96); MONOCYTES % (AUTO) 10.9 % (2.0-12.0); NEUTROPHILS # (AUTO) 6.9 K/uL (1.8-8.9); NEUTROPHILS % (AUTO) 77.3 % (43.0-81.0); PLATELET COUNT (AUTO) 121 K/uL (150-450); RED BLOOD CELL COUNT(AUTO) 3.36 MIL/uL (4.5-6.0); RED CELL DISTRIBUTION WIDTH 15.8 % (11.5-15.0); WHITE BLOOD COUNT (AUTO) 8.9 K/uL (4.3-11.0)
[2024-10-22 07:37] LABS: CALCIUM, SERUM 8.2 mg/dL (8.5-10.1); CREATININE 0.6 mg/dL (0.6-1.3); POTASSIUM 3.2 mmol/L (3.5-5.1)
[2024-10-22 08:00] VITALS: BP 178/82; TEMP 97.2; O2SAT 97
[2024-10-22] MEDS: POTASSIUM CHLORIDE 20 MEQ TAB.PRT.SR PO SCH (10:44)
[2024-10-22 12:00] VITALS: BP 118/66; TEMP 98.3; O2SAT 96
[2024-10-22 16:00] VITALS: BP 137/69; TEMP 98; O2SAT 96
[2024-10-22] MEDS: IBUPROFEN 400 MG TABLET PO PRN (17:56)
[2024-10-22 20:00] VITALS: BP 150/78; TEMP 97.3; O2SAT 97
[2024-10-23] VITALS: BP 151/68; TEMP 97.2; O2SAT 97
[2024-10-23 04:00] VITALS: BP 158/82; TEMP 97.3; O2SAT 96
[2024-10-23 08:00] VITALS: BP 173/89; TEMP 97.9; O2SAT 97
[2024-10-23 08:34] LABS: BASOPHILS % (AUTO) 0.2 % (0.0-2.0); EOSINOPHILS # (AUTO) 0.2 K/uL (0.0-0.7); EOSINOPHILS % (AUTO) 1.6 % (0.0-6.0); HEMATOCRIT 33 % (39-51); HEMOGLOBIN 11.9 g/dL (13.5-17.5); LYMPHOCYTES % (AUTO) 10.1 % (20.0-44.0); MEAN CORPUSCULAR HEMOGLOBIN 35 PG (26.0-33.0); MEAN CORPUSCULAR HGB CONC 36 g/dl (31.0-36.0); MEAN CORPUSCULAR VOLUME 98 fL (80-96); MONOCYTES # (AUTO) 1.2 K/uL (0.1-1.30); MONOCYTES % (AUTO) 11.8 % (2.0-12.0); NEUTROPHILS # (AUTO) 7.8 K/uL (1.8-8.9); NEUTROPHILS % (AUTO) 76.3 % (43.0-81.0); PLATELET COUNT (AUTO) 110 K/uL (150-450); RED BLOOD CELL COUNT(AUTO) 3.36 MIL/uL (4.5-6.0); WHITE BLOOD COUNT (AUTO) 10.2 K/uL (4.3-11.0)
[2024-10-23 08:44] LABS: CALCIUM, SERUM 8.5 mg/dL (8.5-10.1); CREATININE 0.7 mg/dL (0.6-1.3)
[2024-10-23 10:47] LABS: PLATELET ESTIMATE DECREASED
[2024-10-23] MEDS: POTASSIUM CHLORIDE 20 MEQ TAB.PRT.SR PO SCH (10:48)
[2024-10-23 10:50] LABS: BAND % (MANUAL) 1 % (0.0-5.0)
[2024-10-23 10:53] LABS: LYMPHOCYTES % (MANUAL) 9 % (16-48); MONOCYTES % (MANUAL) 8 % (0-11.0); MYELOCYTES % 2 % (0-0); NEUTROPHILS % (MANUAL) 80 (42-76)
[2024-10-23 10:54] LABS: STOMATOCYTES 1+
[2024-10-23 12:00] VITALS: BP 118/65; TEMP 97.7; O2SAT 97
[2024-10-23 16:00] VITALS: BP 131/66; TEMP 98.1; O2SAT 97
[2024-10-23 20:00] VITALS: BP 132/62; TEMP 98.1; O2SAT 94
[2024-10-24] VITALS: BP 140/64; TEMP 98.1; O2SAT 97
[2024-10-24 04:00] VITALS: BP 153/75; TEMP 97.3; O2SAT 97
[2024-10-24 07:34] LABS: CALCIUM, SERUM 8.6 mg/dL (8.5-10.1); POTASSIUM 3.5 mmol/L (3.5-5.1)
[2024-10-24 08:00] VITALS: BP 147/70; TEMP 98.4; O2SAT 97
[2024-10-24 08:32] VITALS: BP 147/70
[2024-10-24] MEDS ORDERED: CHLO25CA22 PO (12:17)
== END 2024-10-24 12:25 | disposition home or self-care (01) | DRG 896 ==
LOC: ER 09:03 → SAOV 15:47 → ICU 16:34 → TELE-TD 10-20 17:58 → TELE1 10-21 10:13 → MEDSG1 10-24 09:30
PROVIDERS: ADMIT Nurse Practitioner Acute Care; ATTEND Internal Medicine
PROC: 05HB33Z Insertion of Infusion Device into Right Basilic Vein, Percutaneous Approach (ICD-10-PCS; principal; 2024-10-19)
PROC: B54MZZA Ultrasonography of Right Upper Extremity Veins, Guidance (ICD-10-PCS; 2024-10-19)
DX: F10.231 Alcohol dependence with withdrawal delirium (principal); N17.0 Acute kidney failure with tubular necrosis; F10.221 Alcohol dependence with intoxication delirium; G31.2 Degeneration of nervous system due to alcohol; E86.0 Dehydration; F12.10 Cannabis abuse, uncomplicated; D64.9 Anemia, unspecified; D69.59 Other secondary thrombocytopenia; E83.39 Other disorders of phosphorus metabolism; E83.42 Hypomagnesemia; E87.6 Hypokalemia; E66.9 Obesity, unspecified; G89.4 Chronic pain syndrome; I10 Essential (primary) hypertension; N40.0 Benign prostatic hyperplasia without lower urinary tract symptoms; Z87.442 Personal history of urinary calculi; M89.8X9 Other specified disorders of bone, unspecified site; Z20.822 Contact with and (suspected) exposure to COVID-19; F17.210 Nicotine dependence, cigarettes, uncomplicated; D75.89 Other specified diseases of blood and blood-forming organs; Y90.3 Blood alcohol level of 60-79 mg/100 ml; Z79.891 Long term (current) use of opiate analgesic; Z68.30 Body mass index [BMI] 30.0-30.9, adult; E11.65 Type 2 diabetes mellitus with hyperglycemia; R11.2 Nausea with vomiting, unspecified; F12.188 Cannabis abuse with other cannabis-induced disorder
CPT/HCPCS: 36415; 70450-TC; 71045-TC; 76770-TC; 80048-TC; 80061-TC; 80076-TC; 82962-TC; 83690-TC; 83735-TC; 84100-TC; 84443-TC; 85025-TC; 85730-TC; 87081-TC; 93307-TC; 93971-TC; 97110-TC; 97112-TC; 97116-TC; 97530-TC; 97535-TC; A4223; A9563; G0378; G0480; J0360; J2060; J2405; J2470; J2560; J3411; J3475; J3490; J7030; J7040; J7050; J7060; Q9967

== ENCOUNTER 2024-10-26 13:46 | Emergency (ER) | payer OTHER ==
[~2024-10-26] VITALS: Ht 193 cm; Wt 99.8 kg
[~2024-10-26 13:46] MED LIST changes: -ALPR1TAB2 PO; +AMLO-212 PO; +BUPR1FIL SL; +CHLO25CA22 PO; +FURO-145 PO; +HYDR-4077 PO; -HYDR1DIS2 IV; -Hydrocodone/Apap 10/325MG PO; -IBUP-1957 PO; +PANT40TA2 PO; -PANT40VI IV; -PIPE3.379 IV; +TAMS-12 PO; -TRAZ-182 PO; +TRAZ-257 PO
[2024-10-26] MEDS ORDERED: OLANZAPINE 10 MG VIAL IM ONE (14:13)
[2024-10-26] MEDS: OLANZAPINE 10 MG VIAL IM ONE (14:19)
[2024-10-26 14:33] LABS: BASOPHILS # (AUTO) 0.1 K/uL (0.0-0.2); BASOPHILS % (AUTO) 1.1 % (0.0-2.0); EOSINOPHILS # (AUTO) 0.1 K/uL (0.0-0.7); EOSINOPHILS % (AUTO) 1.8 % (0.0-6.0); HEMATOCRIT 34 % (39-51); HEMOGLOBIN 11.7 g/dL (13.5-17.5); LYMPHOCYTES # (AUTO) 1.3 K/uL (0.8-4.8); LYMPHOCYTES % (AUTO) 17.1 % (20.0-44.0); MEAN CORPUSCULAR HEMOGLOBIN 34 PG (26.0-33.0); MEAN CORPUSCULAR HGB CONC 35 g/dl (31.0-36.0); MEAN CORPUSCULAR VOLUME 98 fL (80-96); MONOCYTES % (AUTO) 12.7 % (2.0-12.0); NEUTROPHILS # (AUTO) 5.1 K/uL (1.8-8.9); NEUTROPHILS % (AUTO) 67.3 % (43.0-81.0); PLATELET COUNT (AUTO) 245 K/uL (150-450); RED BLOOD CELL COUNT(AUTO) 3.44 MIL/uL (4.5-6.0); RED CELL DISTRIBUTION WIDTH 15.8 % (11.5-15.0); WHITE BLOOD COUNT (AUTO) 7.5 K/uL (4.3-11.0)
[2024-10-26 14:40] LABS: CALCIUM, SERUM 9.4 mg/dL (8.5-10.1); CREATININE 0.7 mg/dL (0.6-1.3); POTASSIUM 3.5 mmol/L (3.5-5.1)
[2024-10-26 14:55] LABS: ALBUMIN 3.5 g/dL (3.4-5.0); BILIRUBIN,DIRECT 0.5 mg/dL (0.0-0.2); BILIRUBIN,TOTAL 0.7 mg/dL (0.2-1.0); TOTAL PROTEIN, SERUM 7.3 g/dL (6.4-8.2)
[2024-10-26 14:56] LABS: SALICYLATE 1.3 mg/dL (2.8-20.0)
[2024-10-26 16:20] LABS: APPEARANCE,URINE CLEAR (CLEAR); BILIRUBIN,URINE NEGATIVE (NEGATIVE); BLOOD, URINE NEGATIVE Ery/uL (NEGATIVE); COLOR,URINE YELLOW (YELLOW); KETONES,URINE TRACE mg/dL (NEGATIVE); LEUKOCYTE ESTERASE ,URINE NEGATIVE (NEGATIVE); NITRITE, URINE NEGATIVE (NEGATIVE); PH,URINE 6.5 (5.0-8.0); PROTEIN,URINE NEGATIVE (NEGATIVE); UGLUCOSE NEGATIVE (NEGATIVE); UROBILINOGEN,URINE 0.2 EU/dL (0.2)
[2024-10-26 16:30] LABS: ADD URINE CULTURE NO; BACTERIA,URINE Rare /HPF (None Seen); RBC,URINE 0-2 /HPF (0-2); SQUAMOUS EPITHELIAL CELL,UR None Seen /HPF (None Seen); WBC,URINE NONE SEEN /HPF (0-3)
[2024-10-26] MEDS ORDERED: ACETAMINOPHEN ES 500 MG TABLET ONE (18:14)
[2024-10-26] MEDS: ACETAMINOPHEN ES 500 MG TABLET PO ONE (18:17)
[2024-10-27 06:02] VITALS: BP 136/75; TEMP 98.1; O2SAT 99
== END 2024-10-27 01:00 | disposition home or self-care (01) ==
LOC: ER 13:48
DX: F10.129 Alcohol abuse with intoxication, unspecified (principal); M54.2 Cervicalgia; E11.9 Type 2 diabetes mellitus without complications; I10 Essential (primary) hypertension; M19.90 Unspecified osteoarthritis, unspecified site; Z79.899 Other long term (current) drug therapy; Z87.442 Personal history of urinary calculi; Z86.79 Personal history of other diseases of the circulatory system; Z87.09 Personal history of other diseases of the respiratory system; Z86.59 Personal history of other mental and behavioral disorders; Y90.6 Blood alcohol level of 120-199 mg/100 ml
CPT/HCPCS: 99285; 96372; 72125; 70450; 85025; 80048; 80076; 81001; 36415; 82962; 80143; 80320; 80179; J7030; J3490; G0480

== ENCOUNTER 2025-10-10 14:07 | Emergency (ER) | payer OTHER ==
[~2025-10-10] VITALS: Ht 193 cm; Wt 99.8 kg
[2025-10-10 14:59] LABS: PLATELET COUNT (AUTO) 169 K/uL (150-450); RED BLOOD CELL COUNT(AUTO) 4.23 MIL/uL (4.5-6.0); RED CELL DISTRIBUTION WIDTH 13.5 % (11.5-15.0); WHITE BLOOD COUNT (AUTO) 4.9 K/uL (4.3-11.0)
[2025-10-10] MEDS ORDERED: BUPRENORPHINE HCL 2 MG TAB.SUBL SL ONE (14:59)
[2025-10-10] MEDS: BUPRENORPHINE HCL 2 MG TAB.SUBL SL ONE (15:06)
[2025-10-10 15:15] LABS: CALCIUM, SERUM 8.9 mg/dL (8.5-10.1); CREATININE 1.0 mg/dL (0.6-1.3); SODIUM SERUM 139.0 mmol/L (136-145); UREA NITROGEN, BLOOD 9.0 mg/dL (7-18)
[2025-10-10] MEDS ORDERED: ONDANSETRON 4 MG TAB.RAPDIS ONE (15:17)
[2025-10-10] MEDS ORDERED: THIAMINE HCL 100 MG TABLET ONE (15:17)
[2025-10-10 15:20] LABS: ASPARTATE AMINOTRANSFERASE 126.0 U/L (15-37); TOTAL PROTEIN, SERUM 7.8 g/dL (6.4-8.2)
[2025-10-10] MEDS: ONDANSETRON 4 MG TAB.RAPDIS PO ONE (15:25)
[2025-10-10] MEDS: THIAMINE HCL 100 MG TABLET PO ONE (15:25)
[2025-10-10 15:49] LABS: EOSINOPHILS % (MANUAL) 1 % (0-4); LYMPHOCYTES % (MANUAL) 28 % (16-48); MONOCYTES % (MANUAL) 5 % (0-11.0); NEUTROPHILS % (MANUAL) 66 (42-76); PLATELET ESTIMATE ADEQUATE
[2025-10-10 16:35] LABS: APPEARANCE,URINE CLEAR (CLEAR); BLOOD, URINE NEGATIVE Ery/uL (NEGATIVE); LEUKOCYTE ESTERASE ,URINE 3+ (NEGATIVE); NITRITE, URINE NEGATIVE (NEGATIVE); UGLUCOSE NEGATIVE (NEGATIVE)
[2025-10-10 16:40] LABS: AMPHETAMINE, URINE NEGATIVE (NEGATIVE); BARBITURATE, URINE NEGATIVE (NEGATIVE); BENZODIAZEPINE, URINE NEGATIVE (NEGATIVE); CANNABINOID, URINE NEGATIVE (NEGATIVE); COCCAINE, URINE NEGATIVE (NEGATIVE); OPIATE, URINE NEGATIVE (NEGATIVE)
[2025-10-10 16:41] LABS: ADD URINE CULTURE YES
[2025-10-10 16:42] LABS: SQUAMOUS EPITHELIAL CELL,UR Few /HPF (None Seen)
[2025-10-10] MEDS ORDERED: LABETALOL 20 MG/4 ML VIAL ONE (17:10)
[2025-10-10] MEDS ORDERED: CEPHALEXIN MONOHYDRATE 500 MG CAPSULE PO ONE (17:10)
[2025-10-10] MEDS: CEPHALEXIN MONOHYDRATE 500 MG CAPSULE PO ONE (17:22)
[2025-10-10] MEDS: LABETALOL HCL IV 100MG VIAL IV ONE (17:22)
[2025-10-10] MEDS ORDERED: ENALAPRILAT INJ (1.25 MG/ML) 1.25 MG/ML VIAL IV ONE (18:38)
[2025-10-10] MEDS: ENALAPRILAT INJ (1.25 MG/ML) 1.25 MG/ML VIAL IV ONE (18:41)
[2025-10-10] MEDS ORDERED: BUPR1FIL SL (20:31)
[2025-10-10] MEDS ORDERED: IBUP-1955 PO (20:31)
[2025-10-10] MEDS ORDERED: CEPH500C2 PO (20:31)
[2025-10-10 20:59] VITALS: BP 142/82; TEMP 97.8; O2SAT 98
== END 2025-10-10 20:59 | disposition home or self-care (01) ==
LOC: ER 14:41
DX: M54.9 Dorsalgia, unspecified (principal); F11.23 Opioid dependence with withdrawal; F10.20 Alcohol dependence, uncomplicated; E11.9 Type 2 diabetes mellitus without complications; G89.29 Other chronic pain; I11.9 Hypertensive heart disease without heart failure; M19.90 Unspecified osteoarthritis, unspecified site; Z79.4 Long term (current) use of insulin; Z79.84 Long term (current) use of oral hypoglycemic drugs; Z79.899 Other long term (current) drug therapy; Z87.442 Personal history of urinary calculi; Z87.891 Personal history of nicotine dependence; Y90.6 Blood alcohol level of 120-199 mg/100 ml
CPT/HCPCS: 99284; 96374; 96375; 93005; 85027; 80048; 87086; 83690; 80076; 85007; 81001; 36415; 84484; 80143; 80320; 80307; J3490 ×2; Q0162; G0480

== ENCOUNTER 2025-10-23 13:36 | Emergency (ER) | payer BC, OTHER ==
[~2025-10-23] VITALS: Ht 185.4 cm; Wt 59.9 kg
[~2025-10-23 13:36] MED LIST changes: +CEPH500C2 PO; +IBUP-1955 PO
[2025-10-23 14:04] LABS: PLATELET COUNT (AUTO) 214 K/uL (150-450); RED BLOOD CELL COUNT(AUTO) 3.85 MIL/uL (4.5-6.0); RED CELL DISTRIBUTION WIDTH 14.3 % (11.5-15.0); WHITE BLOOD COUNT (AUTO) 7.4 K/uL (4.3-11.0)
[2025-10-23 14:12] LABS: CALCIUM, SERUM 8.8 mg/dL (8.5-10.1); CREATININE 1.3 mg/dL (0.6-1.3); SODIUM SERUM 136 mmol/L (136-145); UREA NITROGEN, BLOOD 12 mg/dL (7-18)
[2025-10-23] MEDS ORDERED: TDAP [DIPH/PERTUSSIS/TET] 0.5 ML VIAL IM ONE (14:21)
[2025-10-23] MEDS ORDERED: LIDOCAINE 1% INJ 50 ML MDV IJ ONE (14:21)
[2025-10-23] MEDS: TDAP [DIPH/PERTUSSIS/TET] 0.5 ML VIAL IM ONE (14:28)
[2025-10-23] MEDS: IV NS 0.9% 500 ML BAG IV ONE (14:29)
[2025-10-23] MEDS: BACI/NEOM/POLY B OINT PKT 1 UDPKT PACKET TP ONE (14:29)
[2025-10-23] MEDS: LIDOCAINE 1% INJ 50 ML MDV IJ ONE (14:29)
[2025-10-23] MEDS ORDERED: ONDANSETRON HCL/PF 4 MG/2 ML VIAL ONE (15:13)
[2025-10-23] MEDS ORDERED: MORPHINE SULFATE INJ 4 MG/ML DISP.SYRIN ONE (15:13)
[2025-10-23] MEDS: CEFAZOLIN 2 GM in IV D5W 100 ML IV ONE (15:24)
[2025-10-23] MEDS: ONDANSETRON HCL/PF 4 MG/2 ML VIAL IVP ONE (15:25)
[2025-10-23] MEDS: MORPHINE SULFATE INJ 2 MG/ML DISP.SYRIN IV ONE (15:25)
[2025-10-23] MEDS ORDERED: CEPH-570 PO (18:37)
[2025-10-23 19:46] VITALS: BP 125/70; TEMP 98; O2SAT 98
== END 2025-10-23 19:49 | disposition home or self-care (01) ==
LOC: ER 13:46
DX: S61.412A Laceration without foreign body of left hand, initial encounter (principal); S09.90XA Unspecified injury of head, initial encounter; F10.20 Alcohol dependence, uncomplicated; E11.9 Type 2 diabetes mellitus without complications; I11.9 Hypertensive heart disease without heart failure; Z87.891 Personal history of nicotine dependence; Z79.899 Other long term (current) drug therapy; W01.0XXA Fall on same level from slipping, tripping and stumbling without subsequent striking against object, initial encounter; Y93.89 Activity, other specified; Y92.89 Other specified places as the place of occurrence of the external cause; Y99.8 Other external cause status
CPT/HCPCS: 99285; 72125; 96365; 96375; 71045; 90471; 93005; 90715; 73130; 73030; 70450; 85025; 80048; 36415; 84484; 86850; 82962; J0690; J3490; J2270; J2405; J7060; J7040